=== PATIENT | female | born 1970 | race African-American/Black ===

== ENCOUNTER → 2019-02-22 | Outpatient (CLI) | payer MEDICARE, OTHER ==
--- NOTE | 2019-02-22 16:01 | MR ---
EXAMINATION TYPE: MR brain wo/w con DATE OF EXAM: 02/22/2019 COMPARISON: HISTORY: Memory loss TECHNIQUE: Multiplanar, multisequence images of the brain and brainstem is performed without and with IV contras t, utilizing 10 mL intravenous Gadavist . FINDINGS: Diffusion weighted images demonstrate no evidence of a recent infarct or other diffusion ab normality. There is no extra-axial fluid collection. There is extensive periventricular, subcortical and pericallosal and juxtacortical confluent and scattered hyperintensity present on inversion recov avinash T2-weighted sequences. Largest lesions in the frontal lobes measure 16 to 17 mm in anterior poste rior dimension on axial image 22 and the frontal lobes. Too breasts to count lesions are present. Th ere are greater than 50 lesions. The ventricular system and cisternal spaces are normal in size and a ppearance. The brain volume is age appropriate. Midline structures demonstrate normal morphology. The craniocervical junction appears within normal limits. Post contrast images demonstrate no abnormal enhancement. The dural venous sinuses appear pa tent. The visualized sinuses are clear and the globes are intact. IMPRESSION: Extensive demyelination, correlate for what may be multiple sclerosis versus vasculitis, hypertension, Lyme disease.
== END | disposition home or self-care (01) ==
LOC: RADMRIMAIN 13:39
PROVIDERS: ATTEND Family Medicine
DX: G37.9 Demyelinating disease of central nervous system, unspecified (principal)
CPT/HCPCS: 70553; A9585

== ENCOUNTER → 2019-04-09 | Outpatient (CLI) | payer MEDICARE ==
[2019-04-09 19:01] LABS: Rheumatoid Factor 11 IU/mL (0-15)
[2019-04-09 19:20] LABS: Folate, Serum 11.9 ng/mL
[2019-04-09 19:37] LABS: DNA Double-Stranded NEGATIVE (NEGATIVE)
== END | disposition home or self-care (01) ==
LOC: LABWHC1 12:59
PROVIDERS: ATTEND Psychiatry & Neurology Neurology
DX: R41.3 Other amnesia (principal)
CPT/HCPCS: 36415; 82607; 82746; 86038; 86225; 86431

== ENCOUNTER 2019-08-06 07:59 | Day surgery (SDC) | payer MEDICARE, OTHER ==
[2019-07-30 12:07] VITALS: BMI 31.6
[~2019-08-06 07:59] MED LIST: LACTATED RINGERS 1,000 ML IV SCH
[2019-08-06 08:42] VITALS: RESP 18; TEMP 97.8
[2019-08-06] MEDS ORDERED: LIDOCAINE 1% 20 ML VIAL (10MG/ML) FOR IV START INTRADERMA ONE (08:55)
[2019-08-06] MEDS ORDERED: LACTATED RINGERS 1,000 ML IV ONE (08:55)
--- NOTE | 2019-08-06 09:40 | P.PCN ---
Date of Procedure: 08/06/19 Procedure(s) Performed: Procedure=lumbar puncture . Preoperative diagnoses= multiple sclerosis. Postoperative diagnosis= multiple sclerosis. Anesthesia= IV sedation with Versed and fentanyl and local lidocaine infiltration 1% 2 mL for skin and subcu infiltration. Condition= stable. Complications=none. Indication for the procedure= patient with a history of symptoms suggestive of multiple sclerosis and she was referred to have a lumbar puncture for diagnostic study procedure risk and benefits and alternatives discussed with the patient and she agreed with the preceding, Description of the procedure= patient in the procedure room sitting position and monitors applied, the back prepped with chlorhexidine, sterile technique, local infiltration of the skin and subcu interstitial with lidocaine 1% 2 mL, then 22- gauge quickie Needle advanced slowly at L4-5 interlaminar space, the cerebrospinal fluid was clear, and no heme no paresthesia, a total of 12 mL of clear cerebrospinal fluid collected in 4 different tubes, the needle removed, Band-Aid applied , patient tolerated the procedure well without any complications, and further management as per her neurologist
[2019-08-06] MEDS ORDERED: IV FLUID CONTINUATION 700 ML IV ONE (09:47)
[2019-08-06 10:06] VITALS: BP 130/84; PULSE 70
[2019-08-06 11:21] LABS: Glucose,CSF 52 mg/dL (40-70); Total Protein,CSF 39 mg/dL (12-60)
[2019-08-06 12:06] LABS: Appearance,CSF Clear; CSF Tube Number 4
[2019-08-06 12:07] LABS: Red Blood Cell,CSF 465 u/L (0-10)
[2019-08-06 12:08] LABS: Nucleated Cells, CSF 0 u/L (0-5); Red Blood Cell, CSF Crenated 98 %; Red Blood Cell, CSF Fresh 2 %
[2019-08-07 12:43] LABS: IgG - CSF 2.6 mg/dL (0.0 - 3.4); IgG/Albumin Index (CSF) 0.46 (0.00 - 0.77)
== END 2019-08-06 10:17 | disposition home or self-care (01) ==
LOC: ORPAIN 07:59
PROVIDERS: ATTEND Student in an Organized Health Care Education/Training Program
DX: G35 Multiple sclerosis (principal); Z88.6 Allergy status to analgesic agent; Z88.8 Allergy status to other drugs, medicaments and biological substances
CPT/HCPCS: 81025; 84157; 82945; 82040; 82042; 82784; 83916; 83873; 89050; 87801; 62270; J2250; J2001; J3010; 82438; 99152

== ENCOUNTER → 2023-11-03 | Outpatient (CLI) | payer MEDICARE, OTHER ==
--- NOTE | 2023-11-03 10:18 | CT ---
Exam: CT Angiography of the Chest. Date: 11/03/2023. Comparison: None History: Thoracic aortic aneurysm. Technique: CT examination of the chest was performed without and following the intravenous administra tion of 100 mL of Isovue-300. CT dose lowering techniques were used, to include: automated exposure c ontrol, adjustment for patient size, and/or use of iterative reconstruction. FINDINGS: Mediastinum and Nella: There is no axillary, mediastinal or hilar lymphadenopathy. Pleural and Pericardial spaces: There are no pleural or pericardial effusions. Upper Abdomen: There is dilation of the ascending thoracic aorta for approximately 4.5 cm at the leve l of the main pulmonary artery. No evidence of aortic dissection is seen. Mild vascular calcification is seen in the aortic arch. Mild cardiomegaly. Cardiovascular: The thoracic aorta is normal in size without evidence of aneurysm or dissection. Pulmonary Artery: There are no filling defects in the pulmonary arteries. Lung Parenchyma and Airways: The lungs are clear. Bones: No fracture or aggressive osseous lesion. IMPRESSION: 1. Patient is ascending thoracic aorta up to 4.5 cm. 2. No evidence of aortic dissection. 3. No evidence of pneumonia, pleural or pericardial effusions.
== END | disposition home or self-care (01) ==
LOC: RADCTMAIN 07:39
PROVIDERS: ATTEND Surgery
DX: I71.21 Aneurysm of the ascending aorta, without rupture (principal); I71.02 Dissection of abdominal aorta
CPT/HCPCS: 71275; Q9967

== ENCOUNTER → 2024-10-10 | Outpatient (CLI) | payer MEDICARE, OTHER ==
--- NOTE | 2024-10-11 08:16 | MR ---
EXAMINATION TYPE: MR shoulder RT wo con DATE OF EXAM: 10/10/2024 7:14 PM COMPARISON: Outside right shoulder x-ray June 14, 2024 CLINICAL INDICATION: Female, 54 years old with history of M25.511, Right shoulder pain for 2 years wi th difficulty raising arm overhead, no injury, possible cyst with separation IV Contrast: cc (None if empty) TECHNIQUE: Multiplanar, multisequence imaging of the right shoulder is performed without contrast. FINDINGS: Rotator Cuff: Increased signal in the infraspinatus tendon. Increased signal in the supraspinatus ten don. There is increased signal with surrounding fluid in the distal muscle bulk of both. Heterogeneou s but intact subscapularis tendon. Rotator cuff muscular bulk is preserved. Acromioclavicular Joint: Moderate narrowing with mild capsular hypertrophy. Kwit-[id number]-hclqwejn spurring . Loss of the underlying fat plane sagittal image 17. Glenohumeral Joint: Small to moderate-sized joint effusion. No significant spurring. Narrowing is pre sent. Labrum: The labrum appears grossly intact given limitation of non-arthrogram study. Biceps Tendon: The long head of biceps is in normal location within bicipital groove. Bone marrow signal: Subchondral cystic change involving the lateral aspect of the humeral head. Other: No additional significant abnormality is appreciated. IMPRESSION: 1. Significant tendinosis and/or partial tearing of the supraspinatus and infraspinatus tendons. 2. Mild to moderate AC joint arthropathy with suggestion of underlying impingement. Correlate clinica brook. [facility], , 10/11/2024 8:13 AM
== END | disposition home or self-care (01) ==
LOC: RADMRIMAIN 18:15
PROVIDERS: ATTEND Orthopaedic Surgery
DX: M19.011 Primary osteoarthritis, right shoulder (principal); M25.811 Other specified joint disorders, right shoulder; M75.111 Incomplete rotator cuff tear or rupture of right shoulder, not specified as traumatic

== ENCOUNTER → 2024-10-21 | Outpatient (CLI) | payer MEDICARE, OTHER ==
--- NOTE | 2024-10-21 10:08 | CA ---
Transthoracic Echo Report Name: Miryam Freitas Age: 54 Gender: F : 1970 Exam Date: 10/21/2024 08:35 Exam Location: [facility] Ht (in): 69 Wt (lb): 212 Ordering Physician: Darwin Recinos MD Attending/Referring Phys: Grain Mixer Crystal Medeiros RDCS Procedure CPT: Indications: I71.20 thoracic aneurysm Cardiac Hx: Technical Quality: Good Contrast 1: Total Dose (mL): Contrast 2: Total Dose (mL): MEASUREMENTS (Male / Female) Normal Values 2D ECHO LV Diastolic Diameter PLAX 4.9 cm 4.2 - 5.9 / 3.9 - 5.3 cm LV Systolic Diameter PLAX 3.2 cm IVS Diastolic Thickness 1.6 cm 0.6 - 1.0 / 0.6 - 0.9 cm LVPW Diastolic Thickness 1.1 cm 0.6 - 1.0 / 0.6 - 0.9 cm LV Relative Wall Thickness 0.6 LVOT Diameter 2.1 cm LV Diastolic Volume MOD BP 129.4 cm??? 67 - 155 / 56 - 104 cm??? LV Systolic Volume MOD BP 51.2 cm??? 22 - 58 / 19 - 49 cm??? LV Ejection Fraction MOD BP 60.4 % >= 55 % LV Cardiac Index MOD BP 2175.7 cm???/min???m??? LV Diastolic Volume MOD 4C 127.0 cm??? LV Systolic Volume MOD 4C 55.2 cm??? LV Ejection Fraction MOD 4C 56.6 % LV Cardiac Index MOD 4C 2000.4 cm???/min???m??? LV Diastolic Length 4C 8.9 cm LV Systolic Length 4C 7.0 cm LV Diastolic Volume MOD 2C 123.6 cm??? LV Systolic Volume MOD 2C 47.5 cm??? LV Ejection Fraction MOD 2C 61.6 % LV Cardiac Index MOD 2C 2118.2 cm???/min???m??? LV Diastolic Length 2C 8.3 cm LV Systolic Length 2C 6.9 cm LA Volume 73.5 cm??? 18 - 58 / 22 - 52 cm??? LA Volume Index 33.5 cm???/m??? 16 - 28 cm???/m??? Ascending Aorta Diameter 4.4 cm DOPPLER AV Peak Velocity 189.3 cm/s AV Peak Gradient 14.3 mmHg AV Mean Velocity 128.5 cm/s AV Mean Gradient 7.3 mmHg AV Velocity Time Integral 41.8 cm AI Peak Velocity 467.6 cm/s AI Peak Gradient 87.5 mmHg AI Pressure Half Time 672.3 ms LVOT Peak Velocity 121.9 cm/s LVOT Peak Gradient 5.9 mmHg LVOT Velocity Time Integral 26.9 cm LVOT Stroke Volume 94.9 cm??? LVOT Stroke Volume Index 44.8 ml/m??? LVOT Cardiac Index 2641.9 cm???/min???m??? AV Area Cont Eq vti 2.3 cm??? AV Area Cont Eq pk 2.3 cm??? MV Area PHT 3.5 cm??? Mitral E Point Velocity 53.1 cm/s Mitral A Point Velocity 45.4 cm/s Mitral E to A Ratio 1.2 MV Deceleration Time 215.5 ms TR Peak Velocity 226.7 cm/s TR Peak Gradient 20.6 mmHg Right Atrial Pressure 5.0 mmHg Pulmonary Artery Systolic Pressu 25.6 mmHg Right Ventricular Systolic Press 25.6 mmHg PV Peak Velocity 62.8 cm/s PV Peak Gradient 1.6 mmHg FINDINGS Left Ventricle Left ventricular ejection fraction is estimated at 55-60 %. Severely increased septal wall thickness. Mildly increased posterior wall thickness. Moderately increased left ventricular diastolic volume. Mildly increased left ventricular systolic volume. No obvious regional wall motion abnormalities. Right Ventricle Normal right ventricular size and function. Right ventricular systolic pressure within normal limits. Right Atrium Normal right atrial size. Left Atrium Mildly increased left atrial volume. Mildly increased left atrial area. Mitral Valve Structurally normal mitral valve. No evidence for mitral valve prolapse. No mitral stenosis. Mild mitral regurgitation. Aortic Valve Trileaflet aortic valve. No aortic stenosis. [id number]-vh-[id number] aortic regurgitation. Tricuspid Valve Structurally normal tricuspid valve. No tricuspid stenosis. Mild tricuspid regurgitation. Pulmonic Valve Structurally normal pulmonic valve. No pulmonic stenosis. Mild pulmonic regurgitation. Pericardium No pericardial effusion. Aorta Aortic annulus normal. Mild to moderate ascending aorta dilatation. CONCLUSIONS Left ventricular hypertrophy with normal LV systolic function Mild left atrial enlargement Mild to moderate aortic regurgitation Previewed by: Dr. Jose R Patterson MD (Electronically Signed) Final Date: 21 October 2024 10:07
== END | disposition home or self-care (01) ==
LOC: RADECHMAIN 08:31
PROVIDERS: ATTEND Surgery
DX: I71.20 Thoracic aortic aneurysm, without rupture, unspecified (principal); I07.1 Rheumatic tricuspid insufficiency; I37.1 Nonrheumatic pulmonary valve insufficiency; I35.1 Nonrheumatic aortic (valve) insufficiency
CPT/HCPCS: 93306

== ENCOUNTER → 2024-11-19 | Outpatient (CLI) | payer MEDICARE, OTHER ==
--- NOTE | 2024-11-20 08:59 | CT ---
EXAMINATION TYPE: CT angio chest CT DLP: 920.7 mGycm, Automated exposure control for dose reduction was used. DATE OF EXAM: 11/19/2024 5:47 PM COMPARISON: CTA chest 11/03/2023 CLINICAL INDICATION:Female, 54 years old with history of I71.20 THORACIC AORTIC ANEURYSM, WITHOUT RUP TURE,; Monitoring aneurysm TECHNIQUE/CONTRAST: CTA scan of the thorax is performed without and with IV Contrast, patient injected with 100 mL of Iso pat 370. 3D reconstructed images are created on an independent workstation and reviewed.. FINDINGS: Lungs/Pleura: No evidence of focal consolidation, pleural effusion or pneumothorax. Airway: Large airways are patent. Heart: Size within normal limits. Mild coronary artery calcifications present. No pericardial effusi on. Vasculature: Conventional three-vessel aortic arch. Stable ascending thoracic aortic aneurysm measure d 4.4 cm, previously 4.5 cm. The aortic root measures up to 3.5 cm. The descending thoracic aorta roseanne sures up to 2.7 cm. Mild atherosclerotic calcification of the aorta and its branches. No evidence for intramural hematoma or dissection. The visualized celiac axis, SMA, and bilateral renal arteries are widely patent. Dilated main pulmonary measuring up to 3.6 cm in diameter. Mediastinum: No gross evidence of adenopathy. Musculoskeletal: No acute osseous abnormalities Soft Tissues: Unremarkable. Lower neck: No significant findings. Upper Abdomen: Gallbladder surgically absent.. IMPRESSION: 1. Stable ascending thoracic aortic aneurysm measuring up to 4.4 cm. 2. Dilated main pulmonary artery suggesting pulmonary arterial hypertension. [facility], , 11/20/2024 8:57 AM
== END | disposition home or self-care (01) ==
LOC: RADCTMAIN 15:38
PROVIDERS: ATTEND Surgery
DX: I71.21 Aneurysm of the ascending aorta, without rupture (principal); I28.8 Other diseases of pulmonary vessels
CPT/HCPCS: 71275; Q9967